=== PATIENT | female | born 1965 | race Caucasian/White ===

== ENCOUNTER 2023-09-27 06:52 | Day surgery (SDC) | payer OTHER ==
[~2023-09-27] VITALS: Ht 160 cm; Wt 98.4 kg
[2023-09-27] MEDS ORDERED: MIDAZOLAM 5 MG/5 ML VIAL ONE (07:54)
[2023-09-27] MEDS ORDERED: fentaNYL citrate 0.05 MG/ML VIAL ONE (07:54)
[2023-09-27] MEDS: MIDAZOLAM 2 MG/2 ML VIAL IVP ONE (08:14)
== END 2023-09-27 09:34 | disposition home or self-care (01) ==
LOC: MDS 06:52 → MMU 06:53 → MDS 09:34
PROVIDERS: ATTEND Internal Medicine Gastroenterology
DX: R10.13 Epigastric pain (principal); D64.9 Anemia, unspecified; I10 Essential (primary) hypertension; E78.00 Pure hypercholesterolemia, unspecified; F32.A Depression, unspecified; E03.9 Hypothyroidism, unspecified; Z79.899 Other long term (current) drug therapy; Z98.890 Other specified postprocedural states
CPT/HCPCS: 36415; 43239; 86677; J2250; J3010